=== PATIENT | male | born 1965 | race Caucasian/White ===

== ENCOUNTER 2017-04-08 05:16 | Day surgery (SDC) | payer OTHER ==
[~2017-04-08] VITALS: Ht 180.3 cm; Wt 86.2 kg
--- NOTE | ~2017-04-08 | O ---
[facility] [place] [address] OPERATIVE REPORT Name: PEPE RANDHAWA Room #: DEP [facility] [place] M..#: [id number] Admission: 04/08/17 Attend Phys: Amrit Dasilva MD Discharge: 04/08/17 Date of : 61 Report #: [id number] THIS REPORT FOR: //name// CC: [facility] physician/PCP Amrit Dasilva PREOPERATIVE DIAGNOSIS: Right inguinal hernia. POSTOPERATIVE DIAGNOSIS: Right indirect inguinal hernia. PROCEDURE PERFORMED: Laparoscopic properitoneal repair of right inguinal hernia with a 3DMax large, lightweight mesh. ANESTHESIA: General. COMPLICATIONS: None. ESTIMATED BLOOD LOSS: 5 mL. PROCEDURE NOTE: Wit the patient under general anesthesia, Willis catheter was placed. IV antibiotic was administered. Abdomen was prepped and draped in a sterile fashion. A timeout was performed. After timeout, a transverse incision was made adjacent to the umbilicus on the right side. Skin and subcutaneous tissue was anesthetized with 0.25% Marcaine. The anterior rectus sheath was identified. The anterior rectus sheath was incised. The muscle was spread. The space between the muscle and the posterior sheath was then dissected free. A Origin balloon trocar was placed through the space. CO2 was administered. Under visualization, a 5 mm trocar was placed about an inch and a half below the umbilicus. The properitoneal space was opened up. It was noted that the posterior rectus sheath does extend lower. Once the space was opened up to the left side, a second 5 mm trocar was placed in the lateral abdomen on the right side lateral to the inferior epigastric artery. I did have to take some of the fiber of the posterior rectus sheath away from the wall in order to open this area. Dissection was carried out and there was no direct defect. The patient had a large indirect hernia sac. The hernia sac was quite thickened. The hernia sac was free from the cord structure. The sac came off of the cord fairly easily except over the vas ____. Sac was brought completely down off the cord. The cord structure was isolated. A large right-sided 3DMax lightweight mesh was then placed through the Origin balloon trocar, opened up in the properitoneal space. The mesh was then seated properly. This was tacked to the lateral wall with SorbaFix. This mesh was also tacked to inferomedially to Yobani's ligament, superomedially of the mesh to the rectus muscle. Mesh seated well covering the internal ring and blocking the hernia sac from going out. CO2 was evacuated. Trocars then removed. There was some pneumoperitoneum. This was released by opening the posterior sheath at the umbilical level and then the peritoneum. This layer was closed with [id number] 0 Vicryl. The anterior rectus sheath was then closed with 0 Vicryl lxldar-ep-jealq times 2. Skin was [facility] [address] [place] [address] OPERATIVE REPORT Name: PEPE RANDHAWA Room #: DEP [facility] [place] Dee#: [id number] Admission: 04/08/17 Attend Phys: Amrit Dasilva MD Discharge: 04/08/17 Date of : 61 Report #: [id number] irrigated. Skin was closed with 5-0 PDS. Steri-Strip, Band-Aids applied. The patient tolerated the procedure well. By: [id number] Amrit Dasilva MD /nt
[~2017-04-08 05:16] MED LIST: ALEVE220 MG PO; ALLERGY RELIEF10 M5 PO
[2017-04-08 08:00] VITALS: BP 141/86
[2017-04-08 08:03] LABS: HEMATOCRIT 46.2 % (42.0-52.0); HEMOGLOBIN 15.8 gm/dL (14.0-18.0)
[2017-04-08] MEDS ORDERED: NORCO 5-325 TA1 EACH PO (10:41)
[2017-04-08 11:04] VITALS: BP 141/86
== END 2017-04-08 11:45 | disposition home or self-care (01) ==
LOC: OR 05:16 → TBA 05:17 → OR 09:23
PROVIDERS: Surgery
DX: K40.90 Unilateral inguinal hernia, without obstruction or gangrene, not specified as recurrent (principal); F17.210 Nicotine dependence, cigarettes, uncomplicated; Z98.890 Other specified postprocedural states
CPT/HCPCS: 50010; 50101